=== PATIENT | male | born 1980 | race Caucasian/White ===

== ENCOUNTER 2016-05-22 07:14 | Emergency (ER) | payer OTHER ==
[~2016-05-22] VITALS: Ht 167.6 cm; Wt 98.0 kg
[~2016-05-22 07:14] MED LIST: CIPR500T4 PO; FEXO180T PO; FLUC100T41 PO; PERC5TAB12 PO; PHENA200 PO; [UNRECOGNIZED DRUG - OTHER] PO
[2016-05-22 07:15] VITALS: BP 161/103; PULSE 78; RESP 16; TEMP 98.2; O2SAT 98
[2016-05-22] MEDS ORDERED: FEXO180T PO (07:25)
[2016-05-22] MEDS ORDERED: MORPHINE SULFATE 4 MG/ML INJ IM ONE (07:30)
[2016-05-22] MEDS ORDERED: ONDANSETRON HCL 4 MG/2 ML VIAL IM ONE (07:30)
--- NOTE | 2016-05-22 07:33 | PD ---
HPI Chief Complaint: Flank/Kidney Pain Time Seen by Provider: 07:23 Travel History International Travel<30 days: No Contact w/Intl Traveler<30days: No Traveled to known affect area: No History of Present Illness HPI This patient complains of left flank pain. Duration is one day. Severity is moderate. No injury or fever. He denies hematuria. Has history of kidney stone problems. His urologist is left sided stent 10 days ago. He is urinating without difficulty. No vomiting. PFSH Past Medical History Arthritis: No Asthma: No Autoimmune Disease: No Blood Disorders: No Anxiety: No Depression: No Heart Rhythm Problems: No Cancer: No Cardiovascular Problems: No High Cholesterol: No Chemotherapy: No Chest Pain: No Congestive Heart Failure: No COPD: No Cerebrovascular Accident: No Diabetes: No Diminished Hearing: Yes Endocrine: No Gastrointestinal Disorders: No GERD: No Genitourinary: No Headaches: No Hepatitis: No Hiatal Hernia: No Heparin Induced Thrombocytopen: No Hypertension: No Immune Disorder: No Implanted Vascular Access Dvce: No Kidney Stones: Yes Medical other: No Musculoskeletal: No Neurologic: No Psychiatric: No Reproductive: No Respiratory: No Migraines: No Radiation Therapy: No Renal Failure: No Seizures: No Sickle Cell Disease: No Sleep Apnea: No Thyroid Disease: No Ulcer: No Tetanus Vaccination: > 5 Years Influenza Vaccination: No Past Surgical History Abdominal Surgery: No AICD: No Arteriovenous Shunt: No Cardiac Surgery: No Ear Surgery: No Endocrine Surgery: No Eye Surgery: No Genitourinary Surgery: Yes (LEFT PYELOPLASTY, stents) Gynecologic Surgery: No Insulin Pump: No Joint Replacement: No Neurologic Surgery: No Oral Surgery: No Pacemaker: No Thoracic Surgery: No Social History Alcohol Use: Yes (1-2X WEEK) Tobacco Use: No Substance Use: No Allergies-Medications (Allergen,Severity, Reaction): Coded Allergies: Adhesives (Verified Allergy, Intermediate, Rash, 05/22/16) SILK TAPE Tramadol (Verified Adverse Reaction, Intermediate, Irritation, 05/22/16) Reported Meds & Prescriptions Reported Meds & Active Scripts Active Reported Fexofenadine (Fexofenadine HCl) 180 Mg Tab 180 Mg PO DAILY Review of Systems General / Constitutional: No: Fever Eyes: No: Visual changes HENT: No: Headaches Cardiovascular: No: Chest Pain or Discomfort Respiratory: No: Shortness of Breath Gastrointestinal: Positive: Diarrhea, No: Abdominal Pain Genitourinary: Positive: Flank Pain, No: Dysuria Musculoskeletal: No: Pain Skin: No Rash Neurologic: No: Weakness Psychiatric: No: Depression Endocrine: No: Polydipsia Hematologic/Lymphatic: No: Easy Bruising Physical Exam Narrative GENERAL: Well-nourished, well-developed patient in no apparent distress. SKIN: Warm and dry. HEAD: Atraumatic. Normocephalic. EYES: Pupils equal and round. No scleral icterus. No injection or drainage. ENT: No nasal bleeding or discharge. Mucous membranes pink and moist. NECK: Trachea midline. No JVD. CARDIOVASCULAR: Regular rate and rhythm. No murmur appreciated. RESPIRATORY: No accessory muscle use. Clear to auscultation. Breath sounds equal bilaterally. GASTROINTESTINAL: Abdomen soft, non-tender, nondistended. Hepatic and splenic margins not palpable. MUSCULOSKELETAL: No obvious deformities. No clubbing. No cyanosis. No edema. NEUROLOGICAL: Awake and alert. No obvious cranial nerve deficits. Motor grossly within normal limits. Normal speech. PSYCHIATRIC: Appropriate mood and affect; insight and judgment normal. Data Data Last Documented VS Vital Signs Date Time Temp Pulse Resp B/P Pulse Ox O2 Delivery O2 Flow Rate FiO2 05/22/16 07:48 79 20 134/88 99 Room Air 05/22/16 07:15 98.2 Orders Morphine Inj (Morphine Inj) (05/22/16 07:30) Ondansetron Inj (Zofran Inj) (05/22/16 07:30) Urinalysis - C+S If Indicated (05/22/16 07:30) Ct Abd/Pel W/O Iv Contrast (05/22/16 ) Urine Culture (05/22/16 07:39) Labs Laboratory Tests Test 05/22/16 07:39 Urine Color YELLOW Urine Turbidity CLEAR Urine pH 5.5 Urine Specific [place] 1.018 Urine Protein TRACE mg/dL Urine Glucose (UA) NEG mg/dL Urine Ketones NEG mg/dL Urine Occult Blood SMALL Urine Nitrite NEG Urine Bilirubin NEG Urine Urobilinogen LESS THAN 2.0 MG/DL Urine Leukocyte Esterase LARGE Urine RBC 7 /hpf Urine WBC 57 /hpf Urine Squamous Epithelial <1 /hpf Cells Urine Bacteria RARE /hpf Urine Mucus FEW /lpf Urine Yeast (Budding) RARE Microscopic Urinalysis Comment CULTURE INDICATED MDM Medical Decision Making Medical Screen Exam Complete: Yes Emergency Medical Condition: Yes Medical Record Reviewed: Yes Differential Diagnosis Kidney stone, hydronephrosis, pyelonephritis, sciatica Narrative Course I have reviewed the patient's electronic medical record. I gave him injection of morphine and Zofran for symptom relief Urinalysis shows 57 white cells and will be cultured CT of abdomen and pelvis shows no new stone or acute obstruction. Some fluid around the kidney and abdominal wall edema noted Patient has an appointment with his urologist tomorrow at [facility] and he will discuss these findings with him Wrote him a few days of Cipro Wrote him a few Percocet for symptom relief Diagnosis Primary Impression: Acute left flank pain Additional Impression: Pyuria Additional Instructions: The patient was advised to follow up with their physician and return if they worsen. The patient was warned about potential sedation for the medications they will receive on prescription. Med/Other Pt SpecificInfo: Prescription(s) given Disposition: 01 DISCHARGE HOME Condition: Stable Quincy Singletary MD May 22, 2016 07:33
[2016-05-22 07:48] VITALS: BP 134/88; PULSE 79; RESP 20; O2SAT 99
[2016-05-22 07:59] LABS: BACTERIA, URINE RARE /hpf; BLOOD, URINE SMALL (NEG); COMMENT (UR) CULTURE INDICATED; CULTURE IF INDICATED CULTURE INDICATED; GLUCOSE,URINE NEG (NEG); KETONE, URINE NEG (NEG); MUCUS URINE FEW /lpf (OCC); NITRITE,URINE NEG (NEG); PH, URINE 5.5 (5.0-8.5); SQUAMOUS EPITHELIAL CELL URINE <1 /hpf (0-5); URINE COLOR YELLOW (YELLW/STRAW)
--- NOTE | 2016-05-22 08:38 | RADRPT ---
EXAM DATE/TIME: 05/22/2016 08:09 [facility] COMPARISON: CT ABDOMEN & PELVIS W & W/O CONTRAST, September 09, 2015, 15:39. INDICATIONS : Left flank pain since last night. Recent left renal stent removal. ORAL CONTRAST: No oral contrast ingested. RADIATION DOSE: 23.05 CTDIvol (mGy) MEDICAL HISTORY : Renal calculi. SURGICAL HISTORY : Left pyeloplasty. ENCOUNTER: Initial ACUITY: 2 days PAIN SCALE: 4/10 LOCATION: Left flank TECHNIQUE: Volumetric scanning of the abdomen and pelvis was performed. Using automated exposure control and ad justment of the mA and/or kV according to patient size, radiation dose was kept as low as reasonably achievable to obtain optimal diagnostic quality images. FINDINGS: LOWER LUNGS: The visualized lower lungs are clear. LIVER: Homogeneous density without lesion. There is no dilation of the biliary tree. No calcified gallston es. SPLEEN: Normal size without lesion. PANCREAS: Within normal limits. KIDNEYS: The left renal collecting system is dilated within the kidney and a prominent parapelvic cyst. Small amount of fluid around the left kidney and edema in the abdominal wall related to previous nephrostom y catheter. There no remaining calcifications in the ureters. The soft tissue the prostate which I be lieve are within the prostate and not in the urethra. ADRENAL GLANDS: Within normal limits. VASCULAR: There is no aortic aneurysm. BOWEL/MESENTERY: The stomach, small bowel, and colon demonstrate no acute abnormality. There is no free intraperitone al air or fluid. ABDOMINAL WALL: Within normal limits. RETROPERITONEUM: There is no lymphadenopathy. BLADDER: No wall thickening or mass. REPRODUCTIVE: Within normal limits. INGUINAL: There is no lymphadenopathy or hernia. MUSCULOSKELETAL: Within normal limits for patient age. CONCLUSION: The left renal collecting system is dilated with evidence of previous nephrostomy catheter. I don't s ee any definite acute stone or new perinephric stranding to suggest an acute obstruction. Kar Kwong MD on May 22, 2016 at 8:29 Board Certified Radiologist. This report was verified electronically.
[2016-05-22] MEDS ORDERED: PERC5TAB12 PO (10:00)
[2016-05-22] MEDS ORDERED: CIPR-9 PO (10:00)
[2016-05-22 10:32] VITALS: BP 130/78
[2016-05-22] MEDS ORDERED: oxyCODONE/ACETAMINOPHEN 5 MG/325 MG TAB PO ONE (11:15)
== END 2016-05-22 11:13 | disposition home or self-care (01) ==
LOC: NEPC 07:14
DX: R10.9 Unspecified abdominal pain (principal); N39.0 Urinary tract infection, site not specified; Z87.442 Personal history of urinary calculi
CPT/HCPCS: 74176; 81001; 87086; 96372; 99284; J2270; J2405